=== PATIENT | male | born 1965 | race Caucasian/White ===

== ENCOUNTER 2019-08-05 11:22 | Day surgery (SDC) | payer BC ==
[~2019-08-05 11:22] MED LIST: Lactated Ringers 1,000 ML IV SCH; Lidocaine 2% 5 ML SDV ONE; Midazolam 1 MG/ML 2 ML SDV ONE; Propofol 200 MG/20 ML SDV ONE; fentaNYL 100 MCG/2 ML SDV ONE
[2019-08-05] MEDS ORDERED: Albuterol/Ipratropium 3.0-0.5 MG/3 ML Neb Soln NEB ONE (11:48)
--- NOTE | 2019-08-05 11:59 | PCM.PREANE ---
Preanesthetic Assessment - Anesthesia/Transfusion/Family Hx Anesthesia History: Prior Anesthesia Without Reaction Family History of Anesthesia Reaction: No Transfusion History: No Prior Transfusion(s) Intubation History: Unknown - Review of Systems General: No Symptoms Pulmonary: No Symptoms Cardiovascular: No Symptoms Gastrointestinal: No Symptoms, Other (screening colonoscopy) Neurological: No Symptoms Other: Reports: None - Physical Assessment Vital Signs: Last Vital Signs Temp 36.2 C 08/05/19 11:39 Pulse 57 L 08/05/19 11:39 Resp 14 08/05/19 11:39 BP 143/76 H 08/05/19 11:39 Pulse Ox 96 08/05/19 11:39 Height: 5 ft 11 in Weight: 77.564 kg ASA Class: 3 Mental Status: Alert & Oriented x3 Airway Class: Mallampati = 2 Dentition: Reports: Partial (upper and lower), Broken Tooth/Teeth (loose teeth x2 upper and lower) Thyro-Mental Finger Breadths: 3 Mouth Opening Finger Breadths: 3 ROM/Head Extension: Full Lungs: Normal Respiratory Effort, Decreased Breath Sounds, Crackles Cardiovascular: Regular Rate, Regular Rhythm - Allergies Allergies/Adverse Reactions: Allergies Allergy/AdvReac Type Severity Reaction Status Date / Time No Known Allergies Allergy Verified 08/01/19 15:59 - Blood Blood Available: No - Anesthesia Plan Pre-Op Medication Ordered: None - Acknowledgements Anesthesia Type Planned: MAC Pt an Appropriate Candidate for the Planned Anesthesia: Yes Alternatives and Risks of Anesthesia Discussed w Pt/Guardian: Yes Pt/Guardian Understands and Agrees with Anesthesia Plan: Yes PreAnesthesia Questionnaire HEENT History: Reports: Hard of Hearing, Other (See Below) Other HEENT History: has upper and lower partial removable dentures Cardiovascular History: Reports: High Cholesterol Respiratory History: Reports: COPD, SOB (SOB after 2-3 blocks, has to stop) Other Respiratory History: just prescribed an inhaler- has not used yet Gastrointestinal History: Reports: GERD Other Gastrointestinal History: takes OTC Zantac daily Musculoskeletal History: Reports: Arthritis, Fracture Other Musculoskeletal History: hx of fx shoulder, hands, arm, ribs- takes Aleve daily for aching in his hands - Past Surgical History HEENT Surgical History: Reports: Tonsillectomy Respiratory Surgical History: Reports: Thoracotomy Other Respiratory Surgeries/Procedures: was told he had lung cancer- had Thoracotomy and the spot "disappeared" Musculoskeletal Surgical History: Reports: Shoulder Surgery Other Musculoskeletal Surgeries/Procedures:: ORIF shoulder- pins later removed - SUBSTANCE USE Smoking Status *Q: Current Every Day Smoker (now 1 ppd) Tobacco Use Within Last Twelve Months: Cigarettes Recreational Drug Use History: No - HOME MEDS Home Medications: Home Meds Naproxen Sodium [Aleve] 220 mg PO ASDIRECTED PRN 08/01/19 [History] Ranitidine HCl [Zantac 75] 75 mg PO DAILY 08/01/19 [History] Rosuvastatin Calcium 10 mg PO BEDTIME 08/01/19 [History] - CURRENT (IN HOUSE) MEDS Current Meds: Current Medications Lactated Ringer's (Ringers, Lactated) 1,000 mls @ 125 mls/hr IV ASDIRECTED LISSA Last Admin: 08/05/19 11:50 Dose: 125 mls/hr Discontinued Medications Albuterol/Ipratropium (Duoneb 3.0-0.5 Mg/3 Ml) 3 ml NEB ONETIME ONE Stop: 08/05/19 11:49 Fentanyl (Sublimaze) Confirm Administered Dose 100 mcg .ROUTE .STK-MED ONE Stop: 08/05/19 08:18 Lidocaine (Xylocaine-Mpf 2%) Confirm Administered Dose 5 ml .ROUTE .STK-MED ONE Stop: 08/05/19 08:17 Midazolam HCl (Versed 1 Mg/Ml) Confirm Administered Dose 2 mg .ROUTE .STK-MED ONE Stop: 08/05/19 08:18 Propofol (Diprivan 20 Ml) Confirm Administered Dose 400 mg .ROUTE .STK-MED ONE Stop: 08/05/19 08:17
[2019-08-05] MEDS ORDERED: Albuterol/Ipratropium 3.0-0.5 MG/3 ML Neb Soln ONE (13:11)
[2019-08-05] MEDS ORDERED: Propofol 200 MG/20 ML SDV ONE ×2 (13:42→14:02)
[2019-08-05] MEDS ORDERED: Lactated Ringers 1,000 ML IV SCH (14:30)
--- NOTE | 2019-08-05 14:31 | PCM.OPNOTE ---
- General Post-Op/Procedure Note Date of Surgery/Procedure: 08/05/19 Operative Procedure(s): Esophagogastroduodenoscopy with gastric and esophageal biopsy. Colonoscopy. Pre Op Diagnosis: Progressive heartburn. Desire for colorectal cancer screening. Post-Op Diagnosis: Gastritis with esophagitis. Sigmoid diverticulosis. Anesthesia Technique: MAC (ASA III) Primary Surgeon: Jeffrey Delarosa Yard Inspector: Skye Rouse Condition: Good Free Text/Narrative:: DICTATION [id number] CPT CODE [id number]
--- NOTE | 2019-08-05 14:47 | OR ---
SURGEON: Jeffrey Delarosa M.D. DATE OF PROCEDURE: 08/05/2019 OPERATION PERFORMED: Colonoscopy. PRIMARY SURGEON: Jeffrey Delarosa MD. HISTORIC INTERPRETER: assistant professor of theater: Dr. Rouse, PGY2. ANESTHESIA: MAC. ASA CLASSIFICATION: III. PREOPERATIVE DIAGNOSIS: Desire for colorectal cancer screening. POSTOPERATIVE DIAGNOSIS: Sigmoid diverticulosis. DESCRIPTION OF PROCEDURE: With the patient having completed upper GI endoscopy, he was maintained in the left lateral decubitus position. The colonoscope was inserted into the rectum and advanced with minimal difficulty to the cecum. The cecum was identified by internal landmarks and external pressure. The colonoscope was retroflexed in the cecum to visualize the ascending colon from below, then straightened and slowly withdrawn. Cecum, ascending colon, hepatic flexure, transverse colon, splenic flexure, and descending colon showed no tumors, polyps, diverticula, or angiodysplastic changes. Sigmoid colon itself demonstrates moderate diverticular disease. No stricture, spasm, or bleeding was noted. No polyps were encountered in the sigmoid colon. Once the colonoscope was withdrawn to the rectum, it was retroflexed to visualize the anal orifice from above. Again, no tumors or polyps were seen and there were no acute hemorrhoidal changes. The colonoscope was then straightened, the rectum aspirated, and colonoscope removed. The patient tolerated the procedure well and was taken to recovery room in stable condition. SHIRLEY / MADELIN /[id number]
--- NOTE | 2019-08-05 14:51 | PCM.POSTAN ---
POST ANESTHESIA ASSESSMENT - MENTAL STATUS Mental Status: Alert, Oriented - VITAL SIGNS Vital Signs: Last Vital Signs Temp 36.2 C 08/05/19 11:39 Pulse 63 08/05/19 14:40 Resp 12 08/05/19 14:40 BP 127/70 08/05/19 14:40 Pulse Ox 99 08/05/19 14:40 - RESPIRATORY Respiratory Status: Respiratory Rate WNL, Airway Patent, O2 Saturation Stable - CARDIOVASCULAR CV Status: Pulse Rate WNL, Blood Pressure Stable - GASTROINTESTINAL GI Status: No Symptoms - PAIN Pain Score: 0 - POST OP HYDRATION Hydration Status: Adequate & Stable - OBSERVATIONS Free Text/Narrative:: No anesthesia problems
--- NOTE | 2019-08-05 15:05 | PCM48HPAN ---
Post Anesthesia Note - EVALUATION WITHIN 48HRS OF ANESTHETIC Vital Signs in Normal Range: Yes Patient Participated in Evaluation: Yes Respiratory Function Stable: Yes Airway Patent: Yes Cardiovascular Function Stable: Yes Hydration Status Stable: Yes Pain Control Satisfactory: Yes Nausea and Vomiting Control Satisfactory: Yes Mental Status Recovered: Yes Vital Signs: Last Vital Signs Temp 36.2 C 08/05/19 11:39 Pulse 63 08/05/19 14:40 Resp 12 08/05/19 14:40 BP 127/70 08/05/19 14:40 Pulse Ox 99 08/05/19 14:40 - COMMENTS/OBSERVATIONS Free Text/Narrative:: No anesthesia problems
--- NOTE | 2019-08-05 15:11 | OR ---
SURGEON: Jeffrey Delarosa M.D. DATE OF PROCEDURE: 08/05/2019 OPERATION PERFORMED: Esophagogastroduodenoscopy with biopsy. PRIMARY SURGEON: Jeffrey Delarosa MD. DEEP FAT FRY COOK: assistant front office manager: Dr. Rouse, PGY2. ANESTHESIA: MAC. ASA CLASSIFICATION: III. PREOPERATIVE DIAGNOSIS: Progressive heartburn. POSTOPERATIVE DIAGNOSES: 1. Acute on chronic gastritis. 2. Acute esophagitis with hiatal hernia. DESCRIPTION OF PROCEDURE: The patient was taken to the endoscopy room, positioned on the endoscopy table in the left lateral decubitus position. Time-out was called for appropriate identification of the patient and procedure. Monitored anesthesia care was provided. The bite block was placed between the patient's teeth. The gastroscope was inserted into the bite block and advanced without difficulty through the esophagus and stomach into the duodenum where examination was now carried out in a retrograde fashion. The duodenum showed no acute inflammatory changes or ulcerations. The stomach does show [id number] acute gastritis. Antral biopsies were obtained to look for the presence of Helicobacter pylori. The gastroscope was retroflexed to visualize the proximal stomach where a hiatal hernia was seen. The gastroscope was then straightened and slowly withdrawn. Both in a forward view and retroflexed view, no acute lesions were identified in the proximal stomach. Specifically, no tumors or ulcers were noted. As the scope was withdrawn, the hiatal hernia was easily visualized from above. The patient also had changes consistent with esophagitis and biopsies of the distal esophagus were obtained. This was above the Z-line. The remainder of the esophagus itself showed healthy-appearing mucosa. The vocal cords were not visualized as the patient does have reactive airways disease and was not felt to be safe to do that. The gastroscope was then removed with the patient having tolerated this portion of the procedure well. Following colonoscopy, he was taken to recovery room in stable condition. SHIRLEY / MADELIN /[id number]
== END 2019-08-05 15:11 | disposition home or self-care (01) ==
LOC: MW.SDS 11:22
PROVIDERS: ATTEND Surgery
DX: Z12.11 Encounter for screening for malignant neoplasm of colon (principal); K57.30 Diverticulosis of large intestine without perforation or abscess without bleeding; K29.50 Unspecified chronic gastritis without bleeding; K20.9 Esophagitis, unspecified; K44.9 Diaphragmatic hernia without obstruction or gangrene; M19.90 Unspecified osteoarthritis, unspecified site; J43.9 Emphysema, unspecified; E78.5 Hyperlipidemia, unspecified; F17.210 Nicotine dependence, cigarettes, uncomplicated; Z79.899 Other long term (current) drug therapy
CPT/HCPCS: 43239; 45378; J2001; J2704; J7120; J2250; J3010; J7620-GY